=== PATIENT | female | born 1995 | race Caucasian/White ===

== ENCOUNTER 2017-04-01 16:28 | Emergency (ER) | payer OTHER ==
[2017-04-01] MEDS ORDERED: Amoxicillin PO (*) 500 MG CAP PO ONE (18:37)
[2017-04-01] MEDS ORDERED: Ofloxacin 0.3% OTIC.SOL* 5 ML BTL RIGHT EAR ONE (18:38)
--- NOTE | 2017-04-01 18:41 | ED ---
Throat Pain/Nasal Congestion - HPI Summary HPI Summary: 21 female presents to ED with complaints of right ear pain and discharge that began today. Patient states she felt she was getting an ear infection yesterday and symptoms then worsened today. Patient states she felt like her right ear was under water, used a q-tip, and revealed a bloody discharge. Denies hearing loss, however sounds do sound muffled in right ear. Patient has not taken any medications. Has had ear infections in the past. Denies fever/chills. States she has had a cold over the past week. No other complaints. No other PMHx. - History of Current Complaint Chief Complaint: EDEarPain Time Seen by Provider: 04/01/17 17:46 Hx Obtained From: Patient Onset/Duration: Sudden Onset, Lasting Days - 1-2, Still Present, Worse Since Severity: Mild Cough: None - Allergies/Home Medications Allergies/Adverse Reactions: Allergies Allergy/AdvReac Type Severity Reaction Status Date / Time No Known Allergies Allergy Verified 04/01/17 16:35 PMH/Surg Hx/FS Hx/Imm Hx Endocrine/Hematology History: Denies: Hx Diabetes Cardiovascular History: Denies: Hx Hypertension Respiratory History: Denies: Hx Asthma - Surgical History Surgery Procedure, Year, and Place: n/a - Immunization History Immunizations Up to Date: Yes Infectious Disease History: No Infectious Disease History: Denies: Traveled Outside the [place] in Last 30 Days - Family History Known Family History: Positive: None - Social History Alcohol Use: None Substance Use Type: Reports: None Smoking Status (MU): Never Smoked Tobacco Review of Systems Constitutional: Negative Eyes: Negative Positive: Ear Ache - with discharge, Nasal Discharge Cardiovascular: Negative Respiratory: Negative Positive: Cough - resolving Neurological: Negative All Other Systems Reviewed And Are Negative: Yes Physical Exam Triage Information Reviewed: Yes Vital Signs On Initial Exam: Initial Vitals Temp Pulse Resp BP Pulse Ox 98.3 F 77 16 133/79 100 04/01/17 16:32 04/01/17 16:32 04/01/17 16:32 04/01/17 16:32 04/01/17 16:32 Vital Signs Reviewed: Yes Appearance: Positive: Well-Appearing, No Pain Distress, Well-Nourished Skin: Positive: Warm, Skin Color Reflects Adequate Perfusion, Dry. Negative: Cold, Soft, Pale Head/Face: Positive: Normal Head/Face Inspection Eyes: Positive: Normal, EOMI, LJ, Conjunctiva Clear ENT: Positive: Hearing grossly normal, Pharynx normal, TMs normal - LEFT TM normal, TM bulging - right, TM dull - right, TM red - small perforation, of right TM however unable to visualize entire right TM due to bloody discharge in EAC. no mastoid tenderness. no FB. normal hearing. right effusion. whisper hearing test normal. Negative: Nasal congestion, Nasal drainage, Tonsillar swelling, Tonsillar exudate, Trismus Dental: Negative: Cervical Lymphadenopathy Neck: Positive: Supple, Nontender, No Lymphadenopathy Respiratory/Lung Sounds: Positive: Clear to Auscultation, Breath Sounds Present. Negative: Rales, Rhonchi, Wheezes Cardiovascular: Positive: Normal, RRR, Pulses are Symmetrical in both Upper and Lower Extremities. Negative: Murmur, Rub Bowel Sounds: Positive: Present Musculoskeletal: Positive: Normal, Strength/ROM Intact Neurological: Positive: Normal, Sensory/Motor Intact, Alert, Oriented to Person Place, Time, CN Intact II-III Diagnostics - Vital Signs Vital Signs Temp Pulse Resp BP Pulse Ox 04/01/17 16:32 98.3 F 77 16 133/79 100 - Laboratory Lab Statement: Any lab studies that have been ordered have been reviewed, and results considered in the medical decision making process. EENT Course/Dx - Course Course Of Treatment: appears to be experiencing right TM otitis media with perforation. will treat with oral and otic drop antibiotics. do not submerge into water. aware of worsening signs and symptoms. follow up and have re- evaluated in 7 days. Sooner if new or worsening symptoms. Hearing grossly normal and with whisper test. No other emergent concern at this time. ibuprofen as needed for pain. - Differential Diagnoses Differential Diagnoses: Otitis Externa, Otitis Media, Perforated TM, Other - rhinosinusitis - Diagnoses Provider Diagnoses: Acute otitis media with perforated tympanic membrane Discharge - Discharge Plan Condition: Stable Disposition: HOME Prescriptions: Amoxicillin PO (*) [Amoxicillin 500 MG CAP*] 500 mg PO Q12H #19 cap Patient Education Materials: Ruptured Eardrum (ED), Otitis Media (ED) Referrals: [facility] - Steve ORELLANA [Primary Care Provider] - Anatoliy Tuttle MD [Medical Doctor] - Additional Instructions: Take prescribed medication as directed. Use ear drops as directed, 5 drops in right ear twice a day for 3 days. Do not submerge ear into water, avoid getting water into ear. Do not stick anything into ear, do not use q-tips inside of ear. Follow up with [facility] and/or ENT to ensure improvement of ear within 7 days. Any new or worsening symptoms, hearing loss, fever, increased pain, profuse discharge, please seek medical attention promptly, as discussed.
[2017-04-01 19:13] VITALS: BP 125/48
== END 2017-04-01 19:00 | disposition home or self-care (01) ==
LOC: ED 16:28
DX: H66.91 Otitis media, unspecified, right ear (principal); H72.91 Unspecified perforation of tympanic membrane, right ear; R05 Cough; H92.01 Otalgia, right ear
CPT/HCPCS: 99281; A9270-GY